=== PATIENT | male | born 1985 | race African-American/Black ===

== ENCOUNTER 2022-05-19 17:45 | Emergency (ER) | payer OTHER ==
[2022-05-19 18:18] LABS: BUPRENORPHINE,URINE NEGATIVE (NEGATIVE); MARIJUANA,URINE NEGATIVE (NEGATIVE); METHYLENEDIOXYMETHAMP,UR NEGATIVE (NEGATIVE); PHENCYCLIDINE,URINE NEGATIVE (NEGATIVE)
[2022-05-19 18:32] LABS: ANION GAP 10.4 mmol/L (5-15)
== END 2022-05-19 19:14 | disposition home or self-care (01) ==
LOC: VM.ED 17:45
DX: S80.12XA Contusion of left lower leg, initial encounter (principal); S80.11XA Contusion of right lower leg, initial encounter; W22.09XA Striking against other stationary object, initial encounter
CPT/HCPCS: 36415; 80053; 80305-QW; 80307; 85025; 99284